=== PATIENT | male | born 1960 | race Caucasian/White ===

== ENCOUNTER 2018-02-14 07:21 | Emergency (ER) | payer SELFPAY ==
[~2018-02-14] VITALS: Ht 175.3 cm; Wt 75.0 kg
[2018-02-14 07:25] VITALS: BP 135/95
== END 2018-02-14 08:12 | disposition home or self-care (01) ==
LOC: ED 07:30
DX: F10.129 Alcohol abuse with intoxication, unspecified (principal); Y90.9 Presence of alcohol in blood, level not specified
CPT/HCPCS: 99283

== ENCOUNTER 2019-12-21 02:51 | Inpatient (IN) | payer OTHER ==
[~2019-12-21] VITALS: Ht 167.6 cm; Wt 71.5 kg
[2019-12-21] MEDS ORDERED: ONDANSETRON 2MG/ML, 2ML ONE ×2 (03:11→05:55)
[2019-12-21] MEDS ORDERED: LORazepam 2 MG/ML, 1ML ONE (03:12)
--- NOTE | 2019-12-21 03:18 | NUR ---
HOANG RN: PT MATHEW PICHARDO FROM HOME AFTER BEING FOUND WITH ALTERED MENTAL STATUS BY GIRLFRIEND. SHE REPORTS HE STOPPED DRINKING ALCOHOL SUDDENLY 2 DAYS AGO. SHE WITNESSED HIM HAVE ONE "BRIEF" GRAND MAL SEIZURE. EMS REPORT PT TO BE ORIENTED X1 AND APPEARS POSTICTAL. UPON ARRIVAL TO ER, PT IS ALERT TO SELF, RESTLESS, PULLING OFF ALL MONITORING EQUIPMENT. UNABLE TO ANSWER QUESTIONS APPROPRIATELY. EMS FOUND FSBS TO BE 410, NO HX OF DIABETES. NO OTHER PMHX. NKDA. NO KNOWN TRAUMA HOWEVER PT HAS SMALL LAC ABOVE RIGHT EYE. ALL BLEEDING CONTROLLED. IV ESTABLISHED IN RIGHT AC, LABS DRAWN AND GIVEN TO ALEA, BASE REMOVER. REPORT TO PRIMARY, BRIAN HODGE.
--- NOTE | 2019-12-21 03:20 | NUR ---
GIRLFRIEND, SAMEER ELIZALDE [phone]
--- NOTE | 2019-12-21 03:21 | NUR ---
TEMP NOT TAKEN DURING TRIAGE, DUE TO PT'S INABILITY TO FOLLOW COMMANDS.
[2019-12-21] MEDS ORDERED: SODIUM CHLORIDE 0.9% 1,000ML IVBOLUS ONE ×2 (03:30→05:30)
[2019-12-21] MEDS ORDERED: LORazepam 2 MG/ML, 1ML IVPush ONE (03:30)
[2019-12-21] MEDS ORDERED: MAGNESIUM SULFATE 1 GM, THIAMINE 100 MG, FOLIC ACID 1 MG, MVI ADULT 10 ML in SODIUM CHL... IV ONE (03:30)
[2019-12-21] MEDS ORDERED: ONDANSETRON 2MG/ML, 2ML IVPush ONE ×2 (03:30→06:30)
[2019-12-21] MEDS ORDERED: SODIUM CHLORIDE FLUSH 10ML SYR IVF ONE (03:30)
--- NOTE | 2019-12-21 03:30 | NUR ---
[facility]
--- NOTE | 2019-12-21 03:54 | NUR ---
PT MEDICATED PER EMAR AND IVF STARTED. PT CONTINUES TO BE RESTLESS AND PULLING AT MONITORING EQUIPTMENT AND IV. 2 SOFT UPPER EXTREMITY RESTRAINTS APPLIED AND ER MD ORDERS SIGNED.
[2019-12-21 03:56] LABS: BASOPHILS % (AUTO) 0 % (0-1); EOSINOPHILS # (AUTO) 0.01 x10^3/uL (0-0.4); EOSINOPHILS % (AUTO) 0 % (1-7); LYMPHOCYTES # (AUTO) 0.39 x10^3/uL (1-3.4); LYMPHOCYTES % (AUTO) 5 % (22-44); MD SCAN; MEAN CORPUSCULAR HEMOGLOBIN 33.9 pg (27.5-34.5); MEAN CORPUSCULAR HGB CONC 33.9 g/dL (33.2-36.2); MEAN PLATELET VOLUME 8.8 fL (7.4-10.4); MONOCYTES # (AUTO) 0.42 x10^3/uL (0.2-0.8); MONOCYTES % (AUTO) 5 % (2-9); NEUTROPHILS % (AUTO) 90 % (42-75); PLATELET COUNT 97 x10^3/uL (130-400); RED CELL DISTRIBUTION WIDTH 16.3 % (9.4-14.8)
[2019-12-21 03:57] LABS: ALBUMIN 3.8 g/dL (3.4-5.0); ANION GAP 14 mmol/L (5-15); CALCIUM 8.8 mg/dL (8.5-10.1); CHLORIDE 92 mmol/L (98-107); CREATININE 0.99 mg/dL (0.7-1.3)
[2019-12-21 03:59] LABS: ALANINE AMINOTRANSFERASE 52 U/L (12-78); ALKALINE PHOSPHATASE 75 U/L (45-117); BILIRUBIN,TOTAL 1.8 mg/dL (0.2-1.0); TOTAL PROTEIN 7.5 g/dL (6.4-8.2)
[2019-12-21] MEDS ORDERED: ZIPRASIDONE 20 MG INJ IM ONE ×2 (04:00→04:04)
[2019-12-21] MEDS ORDERED: POTASSIUM CHLORIDE 40 MEQ in SODIUM CHLORIDE 0.9% 500 ML IV ONE (04:30)
[2019-12-21 04:40] LABS: SALICYLATE LEVEL < 1.7 mg/dL (2.8-20.0)
[2019-12-21 04:42] LABS: INTERNATIONAL NORMALIZED RATIO 0.94 (0.93-1.1); PROTHROMBIN TIME 9.7 Seconds (9.6-11.5)
[2019-12-21] MEDS ORDERED: ACETAMINOPHEN 650 MG SUPP ONE (04:59)
[2019-12-21] MEDS ORDERED: DIAZEPAM 5 MG/ML, 2ML IV ONE (05:00)
[2019-12-21] MEDS ORDERED: FOLIC ACID 5 MG/ML IM ONE (05:00)
[2019-12-21] MEDS ORDERED: LORazepam 2 MG/ML, 1ML IV PRN ×5 (05:00)
[2019-12-21] MEDS ORDERED: POTASSIUM PHOSPHATE 22 MEQ in SODIUM CHLORIDE 0.9% 500 ML IV ONE (05:00)
[2019-12-21] MEDS ORDERED: KETAMINE 10 MG/ML, 20ML ONE (05:08)
[2019-12-21] MEDS ORDERED: SODIUM CHLORIDE 0.9% 1,000 ML IV SCH (05:22)
[2019-12-21] MEDS ORDERED: VANCOMYCIN PER PHARMACY MC ONE (05:30)
[2019-12-21] MEDS ORDERED: CEFTRIAXONE PMX 2GM/50ML 50 ML IV ONE (05:30)
[2019-12-21] MEDS ORDERED: morphine SULFATE 10 MG/ML, 1ML IVPush PRN (05:30)
[2019-12-21] MEDS ORDERED: KETAMINE 100 MG/ML, 5ML IV ONE (05:30)
[2019-12-21] MEDS ORDERED: PROMETHAZINE 25 MG/ML, 1ML IM PRN (05:30)
[2019-12-21] MEDS ORDERED: ACETAMINOPHEN 325 MG TABLET PO PRN (05:30)
[2019-12-21] MEDS ORDERED: LABETALOL 5MG/ML, 20ML IVPush PRN (05:30)
[2019-12-21] MEDS ORDERED: ACETAMINOPHEN 650 MG SUPP PR ONE (05:30)
[2019-12-21] MEDS ORDERED: ENOXAPARIN 40 MG/0.4 ML SQ SCH (05:30)
[2019-12-21] MEDS ORDERED: VANCOMYCIN 1,700 MG in SODIUM CHLORIDE 0.9% 250 ML IV ONE (06:00)
[2019-12-21 06:04] LABS: GLUCOSE, CSF 86 mg/dL (40-80); TOTAL PROTEIN,CSF 41 mg/dL (15-45)
--- NOTE | 2019-12-21 06:26 | NUR ---
LATE ENTRY: BRIAN CONKLIN AND I TOOK PT TO CT DUE TO PT CONFUSION AND ALTERED MENTAL STATUS. AFTER RETURN FROM CT, PT TEMP WAS DISCOVERED TO BE ELEVATED AND DR COPELAND WAS NOTIFIED. ORDERES RECIEVED AND PT MEDICATED WITH SUPPOSITORY FOR FEVER. LUMBAR PUNCTURE WAS PERFORMED BY DR COPELAND USING KETAMINE FOR SEDATION. PT WAS ALSO STRAIGHT CATHED FOR URINE. APPROX 200ML DRAINED FROM URINE AND WALKED TO LAB. PT IS STILL VERY ALTERED AND IN 2 LIMB, UPPER EXTREMITY SOFT RESTRAINTS, APPLIED CORRECTLY.
--- NOTE | 2019-12-21 06:33 | NUR ---
ANTIBIOTICS STARTED AFTER 2 SETS OF BLOOD CULTURES DRAWN.
--- NOTE | 2019-12-21 06:44 | NUR ---
REPORT TO BRIAN GONZALES
[2019-12-21] MEDS ORDERED: ZIPRASIDONE 20 MG INJ IM PRN (07:00)
[2019-12-21] MEDS ORDERED: DIAZEPAM 5 MG/ML, 2ML IV SCH (07:00)
[2019-12-21 07:25] LABS: MICROSCOPIC INDICATED
[2019-12-21] MEDS ORDERED: PHENOBARBITAL SODIUM 680 MG in SODIUM CHLORIDE 0.9% 50 ML IV ONE (07:30)
[2019-12-21 07:39] LABS: AMPHETAMINE SCREEN, URINE Negative (Negative); BARBITURATE SCREEN, URINE Negative (Negative); BENZODIAZEPINE SCREEN, URINE Positive (Negative); CANNABINOID SCREEN, URINE Positive (Negative); COCAINE SCREEN, URINE Negative (Negative); OPIATE SCREEN, URINE Negative (Negative)
[2019-12-21 07:41] LABS: METHADONE SCREEN, URINE Negative (Negative)
[2019-12-21] MEDS ORDERED: PHENOBARBITAL SODIUM 640 MG in SODIUM CHLORIDE 0.9% 50 ML IV ONE (08:00)
[2019-12-21] MEDS ORDERED: PHENOBARBITAL ETOH DETOX PER PHARMACY MC PRN (08:30)
[2019-12-21] MEDS: MULTIVITAMINS/MINERALS TABLET PO SCH (09:00)
[2019-12-21] MEDS: CEFTRIAXONE PMX 1GM/50ML 50 ML IV SCH (11:44)
[2019-12-21] MEDS ORDERED: cloniDINE 0.1MG PATCH TD SCH (13:00)
[2019-12-21] MEDS ORDERED: PHENOBARBITAL SODIUM IV ONE (13:00)
[2019-12-21] MEDS ORDERED: SODIUM CHLORIDE 0.9% IV ONE (13:00)
[2019-12-21 13:50] LABS: ANION GAP 11 mmol/L (5-15); CALCIUM 7.6 mg/dL (8.5-10.1); CHLORIDE 106 mmol/L (98-107); CREATININE 0.69 mg/dL (0.7-1.3)
[2019-12-21] MEDS ORDERED: POTASSIUM CHLORIDE 20 MEQ in SODIUM CHLORIDE 0.9% 250 ML IV ONE (15:00)
[2019-12-21] MEDS: POTASSIUM PHOSPHATE 22 MEQ in SODIUM CHLORIDE 0.9% 500 ML IV ONE ×2 (15:00→17:22)
[2019-12-21] MEDS ORDERED: DEXMEDETOMIDINE 400 MCG in SODIUM CHLORIDE 0.9% 96 ML IV PRN (16:00)
[2019-12-21 17:50] LABS: FREE T4 (FREE THYROXINE) 1.11 ng/dL (0.76-1.46)
[2019-12-21] MEDS ORDERED: PHENOBARBITAL SODIUM 65 MG/ML, 1ML IM SCH (20:00)
[2019-12-22 04:00] VITALS: BP 99/77
[2019-12-22 04:34] LABS: MEAN CORPUSCULAR HEMOGLOBIN 34.1 pg (27.5-34.5); MEAN CORPUSCULAR HGB CONC 33.4 g/dL (33.2-36.2); RED BLOOD COUNT 4.05 x10^6/uL (4.38-5.82); RED CELL DISTRIBUTION WIDTH 15.8 % (9.4-14.8)
[2019-12-22 04:43] LABS: ALANINE AMINOTRANSFERASE 60 U/L (12-78); ALBUMIN 3.2 g/dL (3.4-5.0); ANION GAP 14 mmol/L (5-15); CHLORIDE 106 mmol/L (98-107); CREATININE 0.65 mg/dL (0.7-1.3)
[2019-12-22 04:45] LABS: ALKALINE PHOSPHATASE 61 U/L (45-117); TOTAL PROTEIN 6.5 g/dL (6.4-8.2)
[2019-12-22 05:51] LABS: BASOPHILS # (AUTO) 0.01 x10^3/uL (0-0.1); BASOPHILS % (AUTO) 0 % (0-1); EOSINOPHILS # (AUTO) 0.01 x10^3/uL (0-0.4); EOSINOPHILS % (AUTO) 0 % (1-7); LYMPHOCYTES # (AUTO) 0.59 x10^3/uL (1-3.4); LYMPHOCYTES % (AUTO) 13 % (22-44); MD SCAN; MEAN PLATELET VOLUME 8.5 fL (7.4-10.4); MONOCYTES # (AUTO) 0.37 x10^3/uL (0.2-0.8); MONOCYTES % (AUTO) 8 % (2-9); NEUTROPHILS # (AUTO) 3.65 x10^3/uL (1.8-6.8); NEUTROPHILS % (AUTO) 79 % (42-75); PLATELET COUNT 63 x10^3/uL (130-400)
[2019-12-22] MEDS ORDERED: DEXTROSE 50%, 50ML SYRINGE IVPush PRN (07:00)
[2019-12-22] MEDS ORDERED: GLUCAGON 1 MG IM PRN (07:00)
[2019-12-22] MEDS ORDERED: DEXTROSE 4 GM TAB.CHEW PO PRN (07:00)
[2019-12-22] MEDS ORDERED: THIAMINE 100 MG in DEXTROSE 5% 50 ML IVPB SCH (09:00)
[2019-12-22] MEDS: MULTIVITAMINS/MINERALS TABLET PO SCH (09:16)
[2019-12-22] MEDS: SODIUM CHLORIDE FLUSH 10ML SYR IVF SCH ×2 (09:16→20:44)
[2019-12-22] MEDS: PHENOBARBITAL 20 MG/5 ML ORAL SOL PO SCH ×2 (10:10→20:44)
[2019-12-22] MEDS: CEFTRIAXONE PMX 1GM/50ML 50 ML IV SCH (10:10)
[2019-12-22 13:14] VITALS: BP 146/81
[2019-12-22 19:15] VITALS: BP 142/95
[2019-12-23] VITALS (7 sets, daily range): BP systolic 139–170; BP diastolic 92–111
[2019-12-23] MEDS: SODIUM CHLORIDE FLUSH 10ML SYR IVF SCH ×2 (08:45→20:13)
[2019-12-23] MEDS: MULTIVITAMINS/MINERALS TABLET PO SCH (08:45)
[2019-12-23] MEDS: THIAMINE 100MG TABLET PO SCH (08:45)
[2019-12-23] MEDS: PHENOBARBITAL 20 MG/5 ML ORAL SOL PO SCH ×2 (08:46→20:12)
[2019-12-23] MEDS: CEFTRIAXONE PMX 1GM/50ML 50 ML IV SCH (10:00)
[2019-12-23] MEDS: LISINOPRIL 20 MG TABLET PO SCH (20:12)
[2019-12-24 01:06] VITALS: BP 150/98
[2019-12-24 06:59] VITALS: BP 129/88
[2019-12-24] MEDS: PHENOBARBITAL 20 MG/5 ML ORAL SOL PO SCH ×2 (08:53→20:49)
[2019-12-24] MEDS: MULTIVITAMINS/MINERALS TABLET PO SCH (08:53)
[2019-12-24] MEDS: LISINOPRIL 20 MG TABLET PO SCH (08:53)
[2019-12-24] MEDS: THIAMINE 100MG TABLET PO SCH (08:53)
[2019-12-24] MEDS: SODIUM CHLORIDE FLUSH 10ML SYR IVF SCH ×2 (08:53→20:49)
[2019-12-24 13:40] VITALS: BP 153/101
[2019-12-24 18:47] VITALS: BP 146/97
[2019-12-25 00:20] VITALS: BP 144/88
[2019-12-25 06:02] LABS: CHLORIDE 104 mmol/L (98-107)
[2019-12-25 06:10] LABS: ALANINE AMINOTRANSFERASE 60 U/L (12-78); ALKALINE PHOSPHATASE 54 U/L (45-117); ANION GAP 5 mmol/L (5-15); BILIRUBIN,TOTAL 0.4 mg/dL (0.2-1.0); CREATININE 0.77 mg/dL (0.7-1.3); TOTAL PROTEIN 6.2 g/dL (6.4-8.2)
[2019-12-25 06:23] LABS: MEAN CORPUSCULAR HEMOGLOBIN 33.2 pg (27.5-34.5); MEAN CORPUSCULAR HGB CONC 32.6 g/dL (33.2-36.2); MEAN PLATELET VOLUME 8.1 fL (7.4-10.4); PLATELET COUNT 107 x10^3/uL (130-400); RED CELL DISTRIBUTION WIDTH 16.1 % (9.4-14.8)
[2019-12-25 06:33] LABS: BASOPHILS # (AUTO) 0.01 x10^3/uL (0-0.1); BASOPHILS % (AUTO) 0 % (0-1); EOSINOPHILS # (AUTO) 0.08 x10^3/uL (0-0.4); EOSINOPHILS % (AUTO) 2 % (1-7); LYMPHOCYTES # (AUTO) 1.24 x10^3/uL (1-3.4); LYMPHOCYTES % (AUTO) 32 % (22-44); MD SCAN; MONOCYTES # (AUTO) 0.66 x10^3/uL (0.2-0.8); MONOCYTES % (AUTO) 17 % (2-9); NEUTROPHILS # (AUTO) 1.92 x10^3/uL (1.8-6.8); NEUTROPHILS % (AUTO) 49 % (42-75)
[2019-12-25 07:27] VITALS: BP 138/95
[2019-12-25] MEDS ORDERED: POTASSIUM CHLORIDE 20 MEQ TAB.ER.PRT PO SCH (08:00)
[2019-12-25] MEDS: MULTIVITAMINS/MINERALS TABLET PO SCH (08:14)
[2019-12-25] MEDS: SODIUM CHLORIDE FLUSH 10ML SYR IVF SCH (08:15)
[2019-12-25] MEDS: THIAMINE 100MG TABLET PO SCH (08:15)
[2019-12-25] MEDS: LISINOPRIL 20 MG TABLET PO SCH (08:16)
[2019-12-25] MEDS: PHENOBARBITAL 20 MG/5 ML ORAL SOL PO SCH (08:19)
[2019-12-25] MEDS ORDERED: PHENOBARBITAL 20 MG/5 ML ORAL SOL PO SCH (21:00)
[2019-12-26] MEDS ORDERED: PHENOBARBITAL 20 MG/5 ML ORAL SOL PO SCH (21:00)
== END 2019-12-25 11:47 | disposition left against medical advice (07) | DRG 100 ==
LOC: ED 05:38 → EDIP 05:47 → CCU 06:51 → 4WST 12-22 12:56
PROVIDERS: ADMIT Family Medicine; ATTEND Internal Medicine
PROC: 009U3ZX Drainage of Spinal Canal, Percutaneous Approach, Diagnostic (ICD-10-PCS; principal; 2019-12-21)
DX: G40.901 Epilepsy, unspecified, not intractable, with status epilepticus (principal); G93.41 Metabolic encephalopathy; F10.231 Alcohol dependence with withdrawal delirium; D69.6 Thrombocytopenia, unspecified; D75.89 Other specified diseases of blood and blood-forming organs; E87.6 Hypokalemia; I10 Essential (primary) hypertension; K76.0 Fatty (change of) liver, not elsewhere classified; K76.9 Liver disease, unspecified; K70.10 Alcoholic hepatitis without ascites; Z53.29 Procedure and treatment not carried out because of patient's decision for other reasons
CPT/HCPCS: 36415; 70450; 71045; 76705; 80048; 80053; 80307; 81001; 82140; 82607; 82945; 83605; 83735; 84100; 84145; 84157; 84439; 84443; 84481; 85025; 85610; 87040; 87070; 87081; 87205; 87252; 89051; 93005; 96374; 96375; 99291; G0378; J0696; J1650; J2405; J2560; J3370; J3411; J3475; J3480; J3486; J2060; J7030; J7040; J7050